=== PATIENT | female | born 1995 | race Caucasian/White ===

== ENCOUNTER 2019-01-06 08:12 | Emergency (ER) | payer OTHER ==
[~2019-01-06] VITALS: Ht 167.6 cm; Wt 65.5 kg
[~2019-01-06 08:12] MED LIST: IBUP-1542 PO; PHEN177S43 MT; POLY15DR42 RIGHT EYE; PRED20TA PO; VALA100057 PO
[2019-01-06 08:18] VITALS: BP 114/61; PULSE 90; RESP 20; Ht 167.6 cm; Wt 65.5 kg
[2019-01-06] MEDS ORDERED: ONDANSETRON (ODT) 4 MG TAB ODT STA (08:45)
[2019-01-06] MEDS ORDERED: LIDOCAINE/MYLANTA 40 ML BTL PO ONE (09:30)
[2019-01-06] MEDS ORDERED: NITR-58 PO (09:51)
[2019-01-06] MEDS ORDERED: ONDA4TAB14 PO (09:51)
--- NOTE | 2019-01-06 09:57 | ERD ---
ER Documentation Chief Complaint Chief Complaint Complains of being SOB denies Hx of Asthma HPI 23yo F presents to ED with complaint of multiple symptoms. Pt complaining of vomiting and diarrhea x 2 days with 2 episodes of vomiting in past 24hours and no diarrhea in past 24hours. Pt also admits to SOB and FB sensation in throat s/p vomiting this morning. Pt endorses being able to tolerate PO intake and admits to eating and drinking this morning after her last vomiting episode without repeat episodes. Pt states despite eating/drinking she still feels as though something is in her throat. Pt admits to marijuana use prior to onset of symptoms. Denies wheezing, touble speaking, or dizziness. ROS All systems reviewed and are negative except as per history of present illness. Medications Home Meds Active Scripts Ondansetron (Ondansetron Odt) 4 Mg Tab.rapdis, 4 MG PO Q6H PRN for NAUSEA AND/OR VOMITING, #10 TAB Prov:KOKI HAHN PA-C 01/06/19 Nitrofurantoin Monohyd Macrocr* (Macrobid*) 100 Mg Capsr, 100 MG PO BID for 5 Days, CAP Prov:KOKI HAHN PA-C 01/06/19 Ibuprofen* (Motrin*) 600 Mg Tab, 600 MG PO Q6, #30 TAB Prov:GUY DE SOUZA PA-C 03/14/16 Artificial Tears* (Artificial Tears* Ophth) 15 ml Opht, 2 DROP RIGHT EYE Q3H PRN for DRY EYES for 14 Days, EA Prov:GUY DE SOUZA PA-C 03/14/16 Valacyclovir Hcl* (Valtrex*) 1,000 Mg Tablet, 1000 MG PO TID for 7 Days, TAB Prov:GUY DE SOUZA PA-C 03/14/16 Prednisone* (Prednisone*) 20 Mg Tab, 60 MG PO DAILY for 7 Days, TAB Prov:GUY D ESOUZA PA-C 03/14/16 Phenol* (Chloraseptic* [place]) 177 Ml [place].pump, 2 SPRAY MT Q2H PRN for SORE THROAT, #1 BOTTLE Prov:YADI KAMARA DO 02/24/16 Allergies Allergies: Coded Allergies: No Known Allergies (Verified Allergy, Mild, 05/30/11) PMhx/Soc Medical and Surgical Hx: pt denies Medical Hx, pt denies Surgical Hx History of Surgery: No Anesthesia Reaction: No Hx Neurological Disorder: No Hx Respiratory Disorders: No Hx Cardiac Disorders: Yes Hx Psychiatric Problems: No Hx Miscellaneous Medical Probl: No Hx Alcohol Use: No Hx Substance Use: Yes (marijuana ) Hx Tobacco Use: Yes Smoking Status: Current some day smoker FmHx Family History: No diabetes, No coronary disease, No other Physical Exam Vitals Vital Signs Date Temp Pulse Resp B/P (MAP) Pulse Ox O2 O2 Flow FiO2 Time Delivery Rate 01/06/19 97.7 90 20 114/61 97 08:18 (78) Physical Exam GEN: Alert and coherent. Well appearing, non-toxic. No acute distress. Crying and anxious during exam. HEAD: Normocephalic, atraumatic. EYES: EOMI. PERRL. No conjunctival injection. No scleral icterus. No Discharge ENT: Nasal passages patent. Moist mucous membranes. No erythema or tonsillar exudates. NECK: Supple. Full range of motion. Trachea midline. No lymphadenopathy. RESP: No tachypnea. Clear to auscultation bilaterally. No wheezing, rales or rhonchi. No accessory muscle use. No stridor. Speaking full sentences. CV: Regular rate and rhythm. No murmurs, rubs, or gallops. ABD: Soft, non-distended, non-tender. No guarding. No RLQ TTP. Negative hernandez sign. No rebound tenderness or rigidity. No masses. Positive bowel sounds in all four quadrants. BACK: Full ROM. No CVA tenderness. MSK: No deformity. No clubbing, cyanosis or edema. Equal pulses x 4. SKIN: Warm and dry. No obvious rashes, erythema, or petechiae. NEURO: Alert and oriented x3. Appropriate speech. Anxious mood. Face is symmetric. Speech is normal. CN II-XII intact. Moves all extremities equally. Ambulates with a strong, steady gait. Result Diagram: 01/06/1990301/06/19903 Results 24 hrs Laboratory Tests Test 01/06/19 08:56 01/06/19 09:00 01/06/19 09:04 POC Beta HCG, Qualitative NEGATIVE Urine Color GIOVANI Urine Clarity CLOUDY Urine pH 5.0 Urine Specific [place] 1.031 Urine Ketones TRACE mg/dL Urine Nitrite NEGATIVE mg/dL Urine Bilirubin NEGATIVE mg/dL Urine Urobilinogen NEGATIVE mg/dL Urine Leukocyte Esterase 1+ Heron/ul Urine Microscopic RBC 1 /HPF Urine Microscopic WBC 12 /HPF Urine Squamous Epithelial Cells MODERATE /HPF Urine Bacteria FEW /HPF Urine Mucus MANY /HPF Urine Hemoglobin NEGATIVE mg/dL Urine Glucose NEGATIVE mg/dL Urine Total Protein 2+ mg/dl White Blood Count 5.9 10^3/ul Red Blood Count 5.58 10^6/ul Hemoglobin 15.0 g/dl Hematocrit 46.1 % Mean Corpuscular Volume 82.6 fl Mean Corpuscular Hemoglobin 26.9 pg Mean Corpuscular 32.5 g/dl Hemoglobin Concent Red Cell Distribution Width 12.3 % Platelet Count 263 10^3/UL Mean Platelet Volume 9.7 fl Immature Granulocytes % 0.300 % Neutrophils % 75.0 % Lymphocytes % 16.8 % Monocytes % 6.7 % Eosinophils % 0.7 % Basophils % 0.5 % Nucleated Red Blood Cells % 0.0 /100WBC Immature Granulocytes # 0.020 10^3/ul Neutrophils # 4.4 10^3/ul Lymphocytes # 1.0 10^3/ul Monocytes # 0.4 10^3/ul Eosinophils # 0.0 10^3/ul Basophils # 0.0 10^3/ul Nucleated Red Blood Cells # 0.0 10^3/ul Sodium Level 145 mmol/L Potassium Level 3.9 mmol/L Chloride Level 103 mmol/L Carbon Dioxide Level 29 mmol/L Anion Gap 13 Blood Urea Nitrogen 16 mg/dl Creatinine 0.70 mg/dl Est Glomerular Filtrat > 60 mL/min Rate mL/min Glucose Level 106 mg/dl Calcium Level 10.2 mg/dl Total Bilirubin 0.4 mg/dl Direct Bilirubin 0.00 mg/dl Indirect Bilirubin 0.4 mg/dl Aspartate Amino Transf (AST/SGOT) 39 IU/L Alanine 21 IU/L Aminotransferase (ALT/SGPT) Alkaline Phosphatase 112 IU/L Total Protein 9.0 g/dl Albumin 4.9 g/dl Globulin 4.10 g/dl Albumin/Globulin Ratio 1.19 Lipase 71 U/L Current Medications Medications Dose Sig/Tan Start Time Status Last (Trade) Ordered Route PRN Stop Time Admin Dose Reason Admin Ondansetron 4 mg ONCE STAT 01/06/19 DC 01/06/19 HCl (Zofran ODT 08:45 01/06/19 08:55 Odt) 08:50 40 ml ONCE ONCE 01/06/19 DC 01/06/19 Miscellaneous PO 09:30 01/06/19 09:31 Medication 09:31 (Gi Cocktail (2)) Lorazepam 1 mg ONCE ONCE 01/06/19 DC 01/06/19 (Ativan) PO 10:00 01/06/19 10:01 10:01 Procedures/MDM MDM: This is a 23yo female who presented to ED with complaint of Vomiting and diarrhea x 2 days with FB sensation in throat. Pulse ox 97%. Pt able to tolerate PO intake while in ED with no vomiting, speaking full sentences, no stridor. XR imaging negative for FB and physical exam unremarkable. Pt visibly anxious and crying during exam, given Lorazepam 1mg for anxiety with improvement in symptoms. Consequently, labs showed 1+ leukocytes and pt treated for UTI with prescription for macrobid and pyridium. Given no acute findings on exam, it is unlikely FB or FB sensation likely to be an acute emergent condition and pt stable for discharge at this time with close follow-up and strict ED precautions. Pt symptoms improved with re-evaluation. Discharge instructions explained to pt who expressed verbal understanding and agreement. All questions addressed and answered. Departure Diagnosis: Primary Impression: UTI (urinary tract infection) Urinary tract infection type: acute cystitis Hematuria presence: without hematuria Qualified Codes: N30.00 - Acute cystitis without hematuria Additional Impressions: Foreign body Vomiting Vomiting type: unspecified Vomiting Intractability: intractable Nausea presence: with nausea Qualified Codes: R11.2 - Nausea with vomiting, unspecified Condition: Stable Patient Instructions: Understanding Urinary Tract Infections (UTIs), Vomiting And Diarrhea, Nonspecific (Adult) KOKI HAHN PA-C January 06, 2019 09:57
[2019-01-06] MEDS ORDERED: LORAZEPAM 1 MG TAB PO ONE (10:00)
== END 2019-01-06 10:06 | disposition home or self-care (01) ==
LOC: FTE 08:12
DX: N30.00 Acute cystitis without hematuria (principal); R09.89 Other specified symptoms and signs involving the circulatory and respiratory systems
CPT/HCPCS: 36415; 71045; 80053; 81001; 81025; 83690; 85025; Z7502; Z7610

== ENCOUNTER 2019-04-17 09:33 | Emergency (ER) | payer OTHER ==
[~2019-04-17] VITALS: Ht 167.6 cm; Wt 67.5 kg
[~2019-04-17 09:33] MED LIST changes: +CEPH-443 PO; +CIPR500T4 PO; +DOCU-144 PO; +HYDR-3601 PO; +NITR-58 PO; +ONDA4TAB14 PO; +ONDA4TAB8 PO; +OXYC-279 PO; +WORK NOTE
[2019-04-17 09:36] VITALS: Ht 167.6 cm; Wt 67.5 kg
[2019-04-17] MEDS ORDERED: FAMOTIDINE 20 MG INJ IV STA (10:06)
[2019-04-17] MEDS ORDERED: ONDANSETRON 4 MG INJ IV STA (10:06)
[2019-04-17] MEDS ORDERED: SOD CHLORIDE 0.9% 1,000 ML IV STA (10:06)
--- NOTE | 2019-04-17 10:09 | ERD ---
ER Documentation Chief Complaint Chief Complaint nausea and vomiting since last night HPI Is a 23-year-old female patient who presents emergency room with complaint of nausea and vomiting x3 days., Subjective fever starting yesterday. Patient denies dysuria however she presents with a very dark-colored urine sample. Vomiting x3, no diarrhea, no constipation, decreased oral intake over the last 3 days. ROS All systems reviewed and are negative except as per history of present illness. Medications Home Meds Active Scripts Ibuprofen* (Motrin*) 600 Mg Tab, 600 MG PO Q6 for pain for 10 Days, #30 TAB Prov:SEGUNDO FERNÁNDEZ NP 04/17/19 Ondansetron (Ondansetron Odt) 4 Mg Tab.rapdis, 4 MG PO Q6H PRN for NAUSEA AND/OR VOMITING, #10 TAB Prov:SEGUNDO FERNÁNDEZ NP 04/17/19 Cephalexin* (Keflex*) 500 Mg Capsule, 500 MG PO BID for pyelonephritis for 5 Days, #10 CAP Prov:SEGUNDO FERNÁNDEZ NP 04/17/19 Ondansetron (Ondansetron Odt) 4 Mg Tab.rapdis, 4 MG PO Q6H PRN for NAUSEA AND/OR VOMITING, #10 TAB Prov:KOKI HAHNC 01/06/19 Nitrofurantoin Monohyd Macrocr* (Macrobid*) 100 Mg Capsr, 100 MG PO BID for 5 Days, CAP Prov:KOKI HAHNC 01/06/19 Ibuprofen* (Motrin*) 600 Mg Tab, 600 MG PO Q6, #30 TAB Prov:GUY DE SOUZA PA-C 03/14/16 Artificial Tears* (Artificial Tears* Ophth) 15 ml Opht, 2 DROP RIGHT EYE Q3H PRN for DRY EYES for 14 Days, EA Prov:GUY DE SOUZAC 03/14/16 Valacyclovir Hcl* (Valtrex*) 1,000 Mg Tablet, 1000 MG PO TID for 7 Days, TAB Prov:GUY DE SOUZAC 03/14/16 Prednisone* (Prednisone*) 20 Mg Tab, 60 MG PO DAILY for 7 Days, TAB Prov:GUY DE SOUZA PA-C 03/14/16 Phenol* (Chloraseptic* [place]) 177 Ml [place].pump, 2 SPRAY MT Q2H PRN for SORE THROAT, #1 BOTTLE Prov:YADI KAMARA DO 02/24/16 Allergies Allergies: Coded Allergies: No Known Allergies (Verified Allergy, Mild, 04/17/19) PMhx/Soc Medical and Surgical Hx: pt denies Medical Hx, pt denies Surgical Hx History of Surgery: No Anesthesia Reaction: No Hx Neurological Disorder: No Hx Respiratory Disorders: No Hx Cardiac Disorders: Yes Hx Psychiatric Problems: No Hx Miscellaneous Medical Probl: No Hx Alcohol Use: No Hx Substance Use: Yes (marijuana ) Hx Tobacco Use: Yes Smoking Status: Never smoker Physical Exam Vitals Vital Signs Date Temp Pulse Resp B/P (MAP) Pulse Ox O2 O2 Flow FiO2 Time Delivery Rate 04/17/19 100.2 91 18 106/55 97 Room Air 13:26 (72) 04/17/19 99.1 117 18 113/65 94 09:36 (81) Physical Exam Const: No acute distress, decreased energy level Head: Atraumatic Eyes: Normal Conjunctiva, PERRL ENT: Normal External Ears, Nose and Mouth. Pharynx pink, moist no lesions, no exudate Neck: Full range of motion. No meningismus. No lymphadenopathy Resp: Clear to auscultation bilaterally Cardio: Regular rate and rhythm, no murmurs Abd: Soft, non tender, non distended. Normal bowel sounds no organomegaly, Skin: No petechiae or rashes, sallow Back: No midline or flank tenderness, no CVT Ext: No cyanosis, or edema Neur: Awake and alert, clear speech, steady gait Psych: Normal Mood and Affect Result Diagram: 04/17/19 1017 04/17/19 1017 Results 24 hrs Laboratory Tests Test 04/17/19 10:17 04/17/19 10:20 White Blood Count 12.4 10^3/ul Red Blood Count 4.70 10^6/ul Hemoglobin 12.5 g/dl Hematocrit 39.2 % Mean Corpuscular Volume 83.4 fl Mean Corpuscular Hemoglobin 26.6 pg Mean Corpuscular Hemoglobin Concent 31.9 g/dl Red Cell Distribution Width 12.3 % Platelet Count 328 10^3/UL Mean Platelet Volume 9.4 fl Immature Granulocytes % 0.300 % Neutrophils % 90.8 % Lymphocytes % 6.1 % Monocytes % 2.6 % Eosinophils % 0.0 % Basophils % 0.2 % Nucleated Red Blood Cells % 0.0 /100WBC Immature Granulocytes # 0.040 10^3/ul Neutrophils # 11.2 10^3/ul Lymphocytes # 0.8 10^3/ul Monocytes # 0.3 10^3/ul Eosinophils # 0.0 10^3/ul Basophils # 0.0 10^3/ul Nucleated Red Blood Cells # 0.0 10^3/ul Urine Color GIOVANI Urine Clarity CLOUDY Urine pH 5.0 Urine Specific [place] 1.031 Urine Ketones 1+ mg/dL Urine Nitrite NEGATIVE mg/dL Urine Bilirubin NEGATIVE mg/dL Urine Urobilinogen NEGATIVE mg/dL Urine Leukocyte Esterase 2+ Heron/ul Urine Microscopic RBC 8 /HPF Urine Microscopic WBC 163 /HPF Urine Squamous Epithelial Cells MANY /HPF Urine Bacteria FEW /HPF Urine Mucus MANY /HPF Urine Hemoglobin 3+ mg/dL Urine Glucose NEGATIVE mg/dL Urine Total Protein 2+ mg/dl Sodium Level 141 mmol/L Potassium Level 4.3 mmol/L Chloride Level 103 mmol/L Carbon Dioxide Level 29 mmol/L Anion Gap 9 Blood Urea Nitrogen 13 mg/dl Creatinine 0.88 mg/dl Est Glomerular Filtrat Rate mL/min > 60 mL/min Glucose Level 108 mg/dl Calcium Level 9.7 mg/dl Total Bilirubin 1.1 mg/dl Direct Bilirubin 0.00 mg/dl Indirect Bilirubin 1.1 mg/dl Aspartate Amino Transf (AST/SGOT) 34 IU/L Alanine Aminotransferase (ALT/SGPT) 30 IU/L Alkaline Phosphatase 94 IU/L Total Protein 8.6 g/dl Albumin 4.5 g/dl Globulin 4.10 g/dl Albumin/Globulin Ratio 1.09 Lipase 25 U/L POC Beta HCG, Qualitative NEGATIVE Current Medications Medications Dose Sig/Tan Start Time Status Last (Trade) Ordered Route PRN Stop Time Admin Dose Reason Admin Sodium 1,000 ml @ Q1H STAT 04/17/19 DC 04/17/19 Chloride 1,000 mls/hr IV 10:06 10:16 04/17/19 11:05 Ondansetron 4 mg ONCE STAT 04/17/19 DC 04/17/19 HCl (Zofran IV 10:06 10:16 Inj) 04/17/19 10:08 Famotidine 20 mg ONCE STAT 04/17/19 DC 04/17/19 (Pepcid Iv) IV 10:06 10:16 04/17/19 10:08 Ceftriaxone 50 ml @ ONCE ONCE 04/17/19 Sodium 100 mls/hr IVPB 13:30 04/17/19 13:59 1,000 mg ONCE STAT 04/17/19 DC Acetaminophen PO 13:26 (Tylenol 04/17/19 13:27 Tab) Procedures/MDM PROCEDURES/MDM DIAGNOSTIC IMAGING: Read by radiologist. Ultrasound negative for cholecystitis, cholelithiasis LAB INTERPRETATION: Mild leukocytosis, no anemia, no electrolyte disturbance, normal kidney function no hyper or hypoglycemia, no transaminitis. Urine negative for , +1 ketones, +2 leukocyte esterase, + RBC, + WBC, + RBC -Medications: Normal saline, Rocephin, Tylenol, Pepcid, Zofran Patient tolerated medication well with no adverse reactions. Patient reported improvement in pain and general sense of well-being. MDM: Today patient presents with complaint of malaise, nausea, vomiting, presents with very dark-colored urine. Patient reports subjective fevers. Evaluation today suggestive of acute pyelonephritis. Low suspicion for vaginitis, STI, or interstitial cystitis, sepsis, due to absence of clinical findings that would support a diagnosis more serious than pyelonephritis. These diagnoses have been considered and excluded clinically. Nonetheless, it is understood by both the patient and provider that no clinical or diagnostic assessment can entirely exclude such diseases. Patient has been instructed on signs and symptoms of concern or with evolving condition with strict instructions to return to ED for reevaluation. DISPOSITION and PLAN: RX: Zofran, ibuprofen, Keflex The patient has been discharge home to follow-up with community physician. Departure Diagnosis: Primary Impression: Pyelonephritis Additional Impression: Nausea and vomiting Vomiting type: unspecified Vomiting Intractability: non-intractable Qualified Codes: R11.2 - Nausea with vomiting, unspecified Condition: Stable SEGUNDO FERNÁNDEZ NP Apr 17, 2019 10:09
[2019-04-17] MEDS ORDERED: ACETAMINOPHEN 500 MG TAB PO STA (13:26)
[2019-04-17] MEDS ORDERED: CEFTRIAXONE 1 GM/50 ML (PMX) 50 ML IVPB ONE (13:30)
[2019-04-17 14:17] VITALS: BP 110/59; PULSE 92; RESP 18
== END 2019-04-17 14:18 | disposition home or self-care (01) ==
LOC: FTE 09:33
DX: N12 Tubulo-interstitial nephritis, not specified as acute or chronic (principal); Z87.891 Personal history of nicotine dependence
CPT/HCPCS: 36415; 76705; 80053; 81001; 81025; 83690; 85025; 96361; 96365; 96375; J0696; J2405; J7030; Z7502; Z7610

== ENCOUNTER 2019-04-20 07:25 | Emergency (ER) | payer OTHER ==
[~2019-04-20] VITALS: Ht 167.6 cm; Wt 68.0 kg
[2019-04-20 07:27] VITALS: BP 115/62; PULSE 104; RESP 20; Ht 167.6 cm; Wt 68.0 kg
--- NOTE | 2019-04-20 07:50 | ERD ---
ER Documentation Chief Complaint Chief Complaint abdominal pain, back pain, nausea, vomitting HPI 23-year-old female presents the emergency department complaining of bilateral flank pain, nausea, low-grade fever. Patient was in her usual state of health until a few days ago which time she developed the above symptoms. She was seen and evaluated in our emergency department and diagnosed with pyelonephritis. She was started on Keflex which rodolfo carballo tells me she is been taking without significant problems. She states that she continues to have bilateral flank pain low-grade fever and is not significantly improved from when she started the antibiotic. She reports no hematuria, anorexia, abdominal pain. ROS All systems reviewed and are negative except as per history of present illness. Medications Home Meds Active Scripts Ciprofloxacin Hcl* (Ciprofloxacin Hcl*) 500 Mg Tablet, 500 MG PO BID for 7 Days, TAB Prov:JUS GILES 04/20/19 Ibuprofen* (Motrin*) 600 Mg Tab, 600 MG PO Q6 for pain for 10 Days, #30 TAB Prov:SEGUNDO FERNÁNDEZ NP 04/17/19 Ondansetron (Ondansetron Odt) 4 Mg Tab.rapdis, 4 MG PO Q6H PRN for NAUSEA AND/OR VOMITING, #10 TAB Prov:SEGUNDO FERNÁNDEZ NP 04/17/19 Cephalexin* (Keflex*) 500 Mg Capsule, 500 MG PO BID for pyelonephritis for 5 Days, #10 CAP Prov:SEGUNDO FERNÁNDEZ NP 04/17/19 Ondansetron (Ondansetron Odt) 4 Mg Tab.rapdis, 4 MG PO Q6H PRN for NAUSEA AND/OR VOMITING, #10 TAB Prov:KOKI HAHN PA-C 01/06/19 Nitrofurantoin Monohyd Macrocr* (Macrobid*) 100 Mg Capsr, 100 MG PO BID for 5 Days, CAP Prov:KOKI HAHN PA-C 01/06/19 Ibuprofen* (Motrin*) 600 Mg Tab, 600 MG PO Q6, #30 TAB Prov:GUY DE SOUZA PA-C 03/14/16 Artificial Tears* (Artificial Tears* Op[place]) 15 ml Opht, 2 DROP RIGHT EYE Q3H PRN for DRY EYES for 14 Days, EA Prov:GUY DE SOUZA PA-C 7/8/16 Valacyclovir Hcl* (Valtrex*) 1,000 Mg Tablet, 1000 MG PO TID for 7 Days, TAB Prov:GUY DE SOUZA PA-C 03/14/16 Prednisone* (Prednisone*) 20 Mg Tab, 60 MG PO DAILY for 7 Days, TAB Prov:APGUY Norton PA-C 03/14/16 Phenol* (Chloraseptic* [place]) 177 Ml [place].pump, 2 SPRAY MT Q2H PRN for SORE THROAT, #1 BOTTLE Prov:YADI KAMARA 02/24/16 Allergies Allergies: Coded Allergies: No Known Allergies (Verified Allergy, Mild, 04/17/19) PMhx/Soc History of Surgery: No Anesthesia Reaction: No Hx Neurological Disorder: No Hx Respiratory Disorders: No Hx Cardiac Disorders: Yes Hx Psychiatric Problems: No Hx Miscellaneous Medical Probl: No Hx Alcohol Use: No Hx Substance Use: Yes (marijuana ) Hx Tobacco Use: Yes FmHx Noncontributory for chief complaint Physical Exam Vitals Vital Signs Date Temp Pulse Resp B/P (MAP) Pulse Ox O2 O2 Flow FiO2 Time Delivery Rate 04/20/19 100.4 104 20 115/62 95 07:27 (79) Physical Exam GENERAL: The patient is well developed and appropriate for usual state of health in no apparent distress HEENT: Pupils equal, round, and reactive to light. EOMI. There is no scleral icterus. NECK: C-spine is soft and supple, there is no meningismus. There is no cervical lymphadenopathy. LUNGS: Clear to auscultation bilaterally. There are no rales, wheezes or rhonchi. HEART: Regular rate and rhythm, no murmurs, clicks, rubs or gallops. ABDOMEN: Soft, non-tender, non-distended. There are bowel sounds in all four quadrants. No rebound or guarding. No CVA tenderness EXTREMITIES: There is no peripheral cyanosis or edema. No focal swelling or erythema. NEURO: The patient moves all four extremities with 5/5 strength. Cranial nerves II - XII are intact. Normal gait. Alert and oriented SKIN: There is no apparent rash or petechiae. HEME/LYMPHATIC: There is no evidence of excessive bruising or lymphedema. PSYCHIATRIC: The patient does not appear anxious or depressed. Procedures/MDM Patient was taken to a room, seen and evaluated. Comfort measures were initiated. Diagnostic tests were reviewed from her previous visit MEDICAL DECISION MAKIN-year-old otherwise healthy female presents the emergency department with what appears to be ongoing, but not worsening pyelone phritis. She has no evidence of sepsis and appears to be well-hydrated. I will be adding antibiotic coverage with Cipro to her Keflex that she is taking but does not seem to be totally improving her situation. Otherwise she appears to be clinically nontoxic and appropriate for discharge and outpatient management. Departure Diagnosis: Primary Impression: Pyelonephritis Condition: Stable Patient Instructions: Pyelonephritis, Female (Adult) Referrals: [facility] Additional Instructions: Return to the emergency department for any worsening pain, high fever or blood in your urine JUS GILES Apr 20, 2019 07:50
== END 2019-04-20 07:58 | disposition home or self-care (01) ==
LOC: FTE 07:25
DX: N12 Tubulo-interstitial nephritis, not specified as acute or chronic (principal); Z87.891 Personal history of nicotine dependence
CPT/HCPCS: 99283

== ENCOUNTER 2019-04-22 20:31 | Inpatient (IN) | payer OTHER ==
[~2019-04-22] VITALS: Ht 167.6 cm; Wt 68.1 kg
[2019-04-22] MEDS ORDERED: CEFTRIAXONE 1 GM/50 ML (PMX) 50 ML IVPB STA (20:44)
[2019-04-22] MEDS ORDERED: SODIUM CHLORIDE 0.9% 1L BAG IV* STA (20:44)
[2019-04-22] MEDS ORDERED: ACETAMINOPHEN 325 MG TAB PO PRN (23:30)
[2019-04-22] MEDS ORDERED: ONDANSETRON 4 MG INJ IV PRN (23:30)
[2019-04-23 01:20] VITALS: BP 109/66; PULSE 84; RESP 20; Ht 167.6 cm; Wt 68.1 kg
[2019-04-23] MEDS ORDERED: ACETAMINOPHEN 325 MG TAB PO PRN (02:00)
[2019-04-23] MEDS ORDERED: NACL 0.9% 3 ML SYG IV SCH (02:00)
[2019-04-23] MEDS ORDERED: ALBUTEROL/IPRATROPIUM (NEB) 3 ML AMP HHN PRN (02:00)
[2019-04-23] MEDS: SOD CHLORIDE 0.9% 1,000 ML IV SCH ×3 (02:39→21:43)
[2019-04-23] MEDS: ONDANSETRON 4 MG INJ IV PRN (02:39)
[2019-04-23 05:00] VITALS: BP 110/73; PULSE 78; RESP 18
[2019-04-23 07:40] VITALS: BP 125/78; PULSE 88; RESP 18
[2019-04-23] MEDS: POTASSIUM CHLORIDE 100 ML IVPB SCH ×2 (17:32→20:52)
[2019-04-23] MEDS ORDERED: ZOLPIDEM 5 MG TAB PO PRN (18:00)
[2019-04-23 20:30] VITALS: BP 110/63; PULSE 95; RESP 18
[2019-04-23] MEDS: CEFTRIAXONE 1 GM/50 ML (PMX) 50 ML IVPB SCH (20:56)
[2019-04-24] VITALS (22 sets, daily range): BP systolic 95–127; BP diastolic 54–75; PULSE 82–100; RESP 14–25
[2019-04-24] MEDS: SOD CHLORIDE 0.9% 1,000 ML IV SCH ×2 (05:20→17:05)
[2019-04-24] MEDS: ONDANSETRON 4 MG INJ IV PRN (09:50)
[2019-04-24] MEDS ORDERED: SOD FERRIC GLUC COMPLX 125 MG in SOD CHLORIDE 0.9% 100 ML IVPB ONE (10:00)
[2019-04-24] MEDS: SOD FERRIC GLUC COMPLX 125 MG in SOD CHLORIDE 0.9% 100 ML IVPB SCH (12:00)
[2019-04-24] MEDS ORDERED: LIDOCAINE 1% (MPF) 30 ML INJ ONE (18:39)
[2019-04-24] MEDS ORDERED: BUPIVACAINE 0.25%/EPI (SDV) 10 ML INJ ONE (18:39)
[2019-04-24] MEDS ORDERED: ROCURONIUM 50 MG INJ ONE (18:50)
[2019-04-24] MEDS ORDERED: SUCCINYLCHOLINE CHLORIDE 100 MG/5 ML SYG IV ONE (18:51)
[2019-04-24] MEDS ORDERED: PROPOFOL 20 ML ONE (18:51)
[2019-04-24] MEDS ORDERED: LIDOCAINE 2% (SDV) 5 ML INJ ONE (18:51)
[2019-04-24] MEDS ORDERED: FENTAnyl 50 MCG/ML VIAL ONE (18:52)
[2019-04-24] MEDS ORDERED: MIDAZOLAM 1 MG/ML 2 ML INJ ONE (18:52)
[2019-04-24] MEDS ORDERED: ROPIVACAINE 0.5 % 30 ML VIAL ONE (18:54)
[2019-04-24] MEDS: D5-NS + KCL 20 MEQ 1,000 ML IV SCH (19:02)
[2019-04-24] MEDS ORDERED: CEFAZOLIN 1 GM INJ ONE (19:15)
[2019-04-24] MEDS ORDERED: DEXAMETHASONE 4 MG/ML 5 ML INJ ONE (19:23)
[2019-04-24] MEDS ORDERED: ONDANSETRON 4 MG INJ ONE (19:23)
[2019-04-24] MEDS ORDERED: FAMOTIDINE 20 MG INJ ONE (19:23)
[2019-04-24] MEDS ORDERED: ONDANSETRON 4 MG INJ IV PRN (19:30)
[2019-04-24] MEDS ORDERED: FENTAnyl 50 MCG/ML VIAL IV PRN ×3 (19:30)
[2019-04-24] MEDS ORDERED: PROCHLORPERAZINE 10 MG INJ IV PRN (19:30)
[2019-04-24] MEDS ORDERED: DIPHENHYDRAMINE 50 MG INJ IV PRN (19:30)
[2019-04-24] MEDS ORDERED: MEPERIDINE 25 MG INJ IV PRN (19:30)
[2019-04-24] MEDS ORDERED: ACETAMINOPHEN 325 MG TAB PO PRN (19:30)
[2019-04-24] MEDS ORDERED: HYDROmorphONE 1 MG/5 ML IV SYRINGE IV PRN ×3 (19:30)
[2019-04-24] MEDS ORDERED: HYDROmorphONE 2 MG/ML SYG ONE (19:40)
[2019-04-24] MEDS ORDERED: SUGAMMADEX SODIUM 200 MG/2 ML VIAL IV ONE (19:41)
[2019-04-24] MEDS: CEFTRIAXONE 1 GM/50 ML (PMX) 50 ML IVPB SCH (22:01)
[2019-04-25 00:25] VITALS: BP 129/89; PULSE 99; RESP 18
[2019-04-25] MEDS: D5-NS + KCL 20 MEQ 1,000 ML IV SCH ×4 (00:32→23:41)
[2019-04-25] MEDS: PIPER-TAZO 3.375 GM IV (PMX) 100 ML IVPB SCH ×5 (00:32→23:38)
[2019-04-25] MEDS: morphine 2 MG INJ IV PRN ×3 (01:27→08:41)
[2019-04-25] MEDS: ONDANSETRON 4 MG INJ IV PRN ×3 (01:28→22:04)
[2019-04-25] MEDS: SOD CHLORIDE 0.9% 1,000 ML IV SCH (03:43)
[2019-04-25] MEDS ORDERED: ENOXAPARIN 40 MG/0.4 ML SYG SC SCH ×2 (07:00→09:00)
[2019-04-25 08:20] VITALS: BP 118/72; PULSE 85; RESP 18
[2019-04-25] MEDS: HYDROCODONE/APAP (5/325) TAB PO PRN ×2 (10:58→17:08)
[2019-04-25] MEDS: METOCLOPRAMIDE 10 MG INJ IV SCH ×3 (11:03→23:38)
[2019-04-25] MEDS: IBUPROFEN 600 MG TAB PO PRN ×2 (12:03→17:29)
[2019-04-25] MEDS: SOD FERRIC GLUC COMPLX 125 MG in SOD CHLORIDE 0.9% 100 ML IVPB SCH (12:22)
[2019-04-25 15:02] VITALS: BP 117/72; PULSE 71; RESP 18
[2019-04-25 19:30] VITALS: BP 114/81; PULSE 74; RESP 16
[2019-04-25] MEDS: ZOLPIDEM 5 MG TAB PO PRN (23:38)
[2019-04-26 01:31] VITALS: BP 117/78; PULSE 96; RESP 18
[2019-04-26] MEDS: PIPER-TAZO 3.375 GM IV (PMX) 100 ML IVPB SCH ×2 (06:05→11:01)
[2019-04-26] MEDS: METOCLOPRAMIDE 10 MG INJ IV SCH (06:05)
[2019-04-26 07:50] VITALS: BP 115/72; PULSE 94; RESP 20
[2019-04-26] MEDS: HYDROCODONE/APAP (5/325) TAB PO PRN ×2 (09:34→20:28)
[2019-04-26] MEDS: D5-NS + KCL 20 MEQ 1,000 ML IV SCH ×2 (12:45→21:02)
[2019-04-26] MEDS: SOD FERRIC GLUC COMPLX 125 MG in SOD CHLORIDE 0.9% 100 ML IVPB SCH (12:54)
[2019-04-26 15:03] VITALS: BP 108/62; PULSE 66; RESP 18
[2019-04-26 19:51] VITALS: BP 109/68; PULSE 89; RESP 18
[2019-04-26] MEDS: ZOLPIDEM 5 MG TAB PO PRN (21:55)
[2019-04-27] MEDS: ONDANSETRON 4 MG INJ IV PRN (04:09)
[2019-04-27] MEDS: D5-NS + KCL 20 MEQ 1,000 ML IV SCH (04:09)
[2019-04-27 08:23] VITALS: BP 110/72; PULSE 79; RESP 18
== END 2019-04-27 13:30 | disposition home or self-care (01) | DRG 854 ==
LOC: E/R 20:31 → MS1 23:12
PROVIDERS: ADMIT Internal Medicine; ATTEND Internal Medicine
PROC: 0FT44ZZ Resection of Gallbladder, Percutaneous Endoscopic Approach (ICD-10-PCS; principal; 2019-04-24 13:30)
DX: A41.9 Sepsis, unspecified organism (principal); N39.0 Urinary tract infection, site not specified; N12 Tubulo-interstitial nephritis, not specified as acute or chronic; K80.20 Calculus of gallbladder without cholecystitis without obstruction; D50.9 Iron deficiency anemia, unspecified; R11.10 Vomiting, unspecified; R94.5 Abnormal results of liver function studies; R11.0 Nausea; R10.11 Right upper quadrant pain
CPT/HCPCS: 36415; 71045; 74181; 76705; 76775; 80048; 80053; 81001; 81003; 83540; 83605; 83690; 83735; 84100; 84484; 84703; 85025; 85610; 85730; 86706; 86708; 86709; 86803; 87086; 87340; 88304; 93005; 96374; J0690; J0696; J1100; J1170; J1650; J2250; J2270; J2405; J2543; J2765; J2795; J2916; J3010; J3480; J7030